=== PATIENT | female | born 1980 ===

== ENCOUNTER 2024-02-01 00:01 | Inpatient (IN) | payer MEDICAID ==
[2024-02-01] MEDS ORDERED: Terbutaline 1 MG/ML SDV SUBCUT PRN (01:32)
[2024-02-01] MEDS ORDERED: Water For Irrigation,Sterile 1,000 ML Container IRR PRN (01:35)
[2024-02-01] MEDS ORDERED: Misoprostol 200 MCG Tab PO PRN (01:35)
[2024-02-01] MEDS ORDERED: Methylergonovine 0.2 MG/1 ML Amp IM PRN (01:35)
[2024-02-01] MEDS ORDERED: Sodium Chloride 0.9% 2.5 ML Syringe FLUSH PRN (01:35)
[2024-02-01] MEDS ORDERED: Sodium Chloride 0.9% 10 ML Syringe FLUSH PRN (01:35)
[2024-02-01] MEDS ORDERED: Sodium Chloride 0.9% 20 ML SDV IV PRN (01:35)
[2024-02-01] MEDS ORDERED: Butorphanol 2 MG/ML SDV IVPUSH PRN (01:35)
[2024-02-01] MEDS: Lactated Ringers 1,000 ML IV SCH (02:05)
[2024-02-01] MEDS: Oxytocin/0.9 % Sodium Chloride 30 UNIT/500 ML BAG IV SCH ×2 (02:05→04:30)
[2024-02-01 02:09] LABS: HEMATOCRIT 35.6 % (37.0-47.0); MEAN CORPUSCULAR HEMOGLOBIN 28.5 pg (28.0-32.0); MEAN CORPUSCULAR HGB CONC 33.7 g/dL (32.0-36.0); MEAN CORPUSCULAR VOLUME 84.6 fL (83.0-99.0); MEAN PLATELET VOLUME 9.9 fL (9.4-12.3); PLATELET COUNT,PLT 248 K/uL (150-400); RED BLOOD CELL COUNT 4.21 M/uL (4.10-5.30); WHITE BLOOD CELL COUNT,WBC 7.41 K/uL (3.9-11.3)
[2024-02-01 02:13] LABS: APPEARANCE,URINE CLEAR; BILIRUBIN,URINE NEGATIVE (NEGATIVE); COLOR,URINE YELLOW; GLUCOSE,URINE NEGATIVE (NEGATIVE); KETONES,URINE TRACE mg/dL (NEGATIVE); LEUKOCYTE ESTERASE,URINE NEGATIVE (NEGATIVE); NITRITE,URINE NEGATIVE (NEGATIVE); OCCULT BLOOD,URINE NEGATIVE (NEGATIVE); PH,URINE 6.5 (5.0-8.0); PROTEIN,URINE NEGATIVE (NEGATIVE); UROBILINOGEN,URINE 0.2 EU/dL (<2.0)
[2024-02-01 02:31] LABS: PROTEIN CREATININE RATIO,URINE 0.2; PROTEIN,URINE RANDOM 17.9 mg/dL (<11.9)
[2024-02-01 02:34] LABS: A/G RATIO 0.6 (0.9-1.6); ALBUMIN 2.4 g/dL (3.4-5.0); BILIRUBIN TOTAL 0.3 mg/dL (0.2-1.0); CALCIUM 9.1 mg/dL (8.5-10.1); CARBON DIOXIDE,CO2 23.1 mmol/L (21.0-32.0); CREATININE 0.7 mg/dL (0.6-1.0); EST CRCL DRUG DOSING (CG) 98.01 mL/min; PROTEIN TOTAL,TP 6.6 g/dL (6.4-8.2)
[2024-02-01] MEDS: Ondansetron 4 MG/2 ML SDV IVPUSH PRN (03:01)
[2024-02-01] MEDS: Tranexamic Acid in NACL,ISO-OS 100 ML IV ONE (03:35)
[2024-02-01] MEDS: Misoprostol 200 MCG Tab RECTAL PRN (03:50)
[2024-02-01] MEDS ORDERED: Labetalol 100 MG/20 ML MDV ONE (04:34)
[2024-02-01] MEDS: Lidocaine 1% 50 ML MDV INJECT PRN (04:35)
[2024-02-01] MEDS: Carboprost Tromethamine 250 MCG/1 mL Vial IM PRN (04:38)
[2024-02-01] MEDS ORDERED: Tranexamic Acid in NACL,ISO-OS 1,000 MG/100 ML Bag IV ONE ×3 (04:39→05:44)
[2024-02-01] MEDS: Labetalol 100 MG/20 ML MDV IVPUSH ONE (04:40)
[2024-02-01] MEDS ORDERED: Carboprost Tromethamine 250 MCG/1 mL Vial IM ONE (04:59)
[2024-02-01 05:02] LABS: PH,UMBILICAL ARTERIAL 7.202 (7.18-7.38); PH,UMBILICAL VENOUS 7.276 (7.25-7.45)
[2024-02-01 05:13] LABS: BASOPHILS ABSOLUTE AUTO 0.02 K/uL (0.00-0.20); BASOPHILS PERCENT AUTO 0.2 % (0.0-1.0); EOSINOPHILS ABSOLUTE AUTO 0.01 K/uL (0.00-0.45); EOSINOPHILS PERCENT AUTO 0.1 % (0.0-6.0); HEMATOCRIT 34.9 % (37.0-47.0); HEMOGLOBIN 11.6 g/dL (12.0-16.0); IMMATURE GRAN ABSOLUTE AUTO 0.02 K/uL (0.00-0.05); IMMATURE GRAN PERCENT AUTO 0.2 % (0.0-0.4); LYMPHOCYTES ABSOLUTE AUTO 1.07 K/uL (1.00-4.80); LYMPHOCYTES PERCENT AUTO 11.9 % (24.0-44.0); MEAN CORPUSCULAR HEMOGLOBIN 28.2 pg (28.0-32.0); MEAN CORPUSCULAR HGB CONC 33.2 g/dL (32.0-36.0); MEAN CORPUSCULAR VOLUME 84.7 fL (83.0-99.0); MEAN PLATELET VOLUME 9.9 fL (9.4-12.3); MONOCYTES ABSOLUTE AUTO 0.34 K/uL (0.00-0.80); MONOCYTES PERCENT AUTO 3.8 % (0.0-8.0); NEUTROPHILS ABSOLUTE AUTO 7.51 K/uL (1.80-7.70); NEUTROPHILS PERCENT AUTO 83.8 % (41.0-71.0); PLATELET COUNT,PLT 243 K/uL (150-400); RED BLOOD CELL COUNT 4.12 M/uL (4.10-5.30); WHITE BLOOD CELL COUNT,WBC 8.97 K/uL (3.9-11.3)
[2024-02-01] MEDS ORDERED: Atropine/Diphenoxylate 0.025-2.5 MG Tab PO PRN (06:42)
[2024-02-01] MEDS ORDERED: Docusate Sodium 100 MG Cap PO PRN (08:47)
[2024-02-01] MEDS ORDERED: Simethicone 80 MG Tab.Chew PO PRN (08:47)
[2024-02-01] MEDS ORDERED: Acetaminophen 500 MG Tab PO PRN (08:47)
[2024-02-01] MEDS: Ibuprofen 800 MG Tab PO PRN (12:22)
[2024-02-01] MEDS: Witch Hazel Medicated Pads 40/Jar TOP PRN (12:23)
[2024-02-01] MEDS: Benzocaine/Menthol 20%-0.5% Spray 78 GM Cannister TOP PRN (12:23)
[2024-02-01 16:27] LABS: HEMATOCRIT 32.4 % (37.0-47.0); HEMOGLOBIN 10.9 g/dL (12.0-16.0); MEAN CORPUSCULAR HEMOGLOBIN 28.5 pg (28.0-32.0); MEAN CORPUSCULAR HGB CONC 33.6 g/dL (32.0-36.0); MEAN CORPUSCULAR VOLUME 84.6 fL (83.0-99.0); MEAN PLATELET VOLUME 9.8 fL (9.4-12.3); PLATELET COUNT,PLT 251 K/uL (150-400); RED BLOOD CELL COUNT 3.83 M/uL (4.10-5.30); WHITE BLOOD CELL COUNT,WBC 10.71 K/uL (3.9-11.3)
[2024-02-01 17:14] LABS: A/G RATIO 0.5 (0.9-1.6); ALBUMIN 1.8 g/dL (3.4-5.0); BILIRUBIN TOTAL 0.2 mg/dL (0.2-1.0); CALCIUM 8.7 mg/dL (8.5-10.1); CREATININE 0.6 mg/dL (0.6-1.0); EST CRCL DRUG DOSING (CG) 114.34 mL/min; POTASSIUM,K 4.4 mmol/L (3.5-5.1); PROTEIN TOTAL,TP 5.5 g/dL (6.4-8.2)
[2024-02-01] MEDS: Atropine/Diphenoxylate 0.025-2.5 MG Tab PO PRN (17:34)
[2024-02-02 06:38] LABS: HEMATOCRIT 30.7 % (37.0-47.0); HEMOGLOBIN 10.1 g/dL (12.0-16.0); MEAN CORPUSCULAR HGB CONC 32.9 g/dL (32.0-36.0); PLATELET COUNT,PLT 247 K/uL (150-400); RED BLOOD CELL COUNT 3.61 M/uL (4.10-5.30); WHITE BLOOD CELL COUNT,WBC 8.91 K/uL (3.9-11.3)
[2024-02-02 07:05] LABS: A/G RATIO 0.5 (0.9-1.6); ALBUMIN 1.8 g/dL (3.4-5.0); BILIRUBIN TOTAL 0.1 mg/dL (0.2-1.0); CALCIUM 8.9 mg/dL (8.5-10.1); CARBON DIOXIDE,CO2 25.2 mmol/L (21.0-32.0); CREATININE 0.7 mg/dL (0.6-1.0); EST CRCL DRUG DOSING (CG) 98.01 mL/min; POTASSIUM,K 4.1 mmol/L (3.5-5.1); PROTEIN TOTAL,TP 5.6 g/dL (6.4-8.2)
== END 2024-02-02 13:51 | disposition home or self-care (01) | DRG 806 ==
LOC: MW.OBCHECK 00:01 → MW.OB 00:02 → OBSVTOIN 04:25 → MW.OB 23:34
PROVIDERS: ADMIT Obstetrics & Gynecology; ATTEND Obstetrics & Gynecology
PROC: 10E0XZZ Delivery of Products of Conception, External Approach (ICD-10-PCS; principal; 2024-02-01)
PROC: 0KQM0ZZ Repair Perineum Muscle, Open Approach (ICD-10-PCS; 2024-02-01)
PROC: 3E0P7VZ Introduction of Hormone into Female Reproductive, Via Natural or Artificial Opening (ICD-10-PCS; 2024-02-01)
DX: O24.32 Unspecified pre-existing diabetes mellitus in childbirth (principal); O72.1 Other immediate postpartum hemorrhage; Z37.0 Single live birth; O11.4 Pre-existing hypertension with pre-eclampsia, complicating childbirth; O70.1 Second degree perineal laceration during delivery; O99.214 Obesity complicating childbirth; O66.0 Obstructed labor due to shoulder dystocia; E66.811 Obesity, class 1; O90.81 Anemia of the puerperium; O36.60X0 Maternal care for excessive fetal growth, unspecified trimester, not applicable or unspecified; Z3A.37 37 weeks gestation of pregnancy
CPT/HCPCS: 36415; 59409; 80053; 81003; 82570; 82803; 84156; 85025; 85027; 86592; 86850; 86900; 86901; A9270-GY; J1920; J2405; J2590; J3490; J7120